=== PATIENT | female | born 1990 | race Asian ===

== ENCOUNTER 2016-08-20 18:10 | Emergency (ER) | payer OTHER ==
[~2016-08-20] VITALS: Ht 172.7 cm; Wt 73.8 kg
[2016-08-20 18:24] VITALS: BP 102/61
[2016-08-20 20:57] LABS: HEMOGLOBIN 15.8 g/dL (11.7-16.4)
[2016-08-20 21:04] LABS: ASPARTATE AMINO TRANSFERASE 13 U/L (15-37); BLOOD UREA NITROGEN 14 mg/dL (7-18)
[2016-08-20] MEDS ORDERED: KETOROLAC 30 MG/1 ML ONE (22:08)
[2016-08-20] MEDS ORDERED: KETOROLAC 30 MG/1 ML IVPush ONE (22:30)
[2016-08-20] MEDS ORDERED: OMNIPAQUE 350 MG/ML, 100ML BOTTLE ONE (23:34)
== END 2016-08-20 22:46 | disposition home or self-care (01) ==
LOC: ED 22:40
DX: N83.11 Corpus luteum cyst of right ovary (principal); R10.32 Left lower quadrant pain; R10.31 Right lower quadrant pain
CPT/HCPCS: 36415; 74020; 74177; 76830; 80053; 83690; 84703; 85025; 96374; 99285; J1885; Q9967